=== PATIENT | male | born 1970 | race Caucasian/White ===

== ENCOUNTER 2017-10-02 19:04 | Emergency (ER) | payer OTHER ==
[~2017-10-02] VITALS: Ht 170.2 cm; Wt 61.2 kg
[2017-10-02 19:13] VITALS: Ht 170.2 cm; Wt 61.2 kg
[2017-10-02 19:57] LABS: BASOPHIL % 0.6 % (0-2); PLATELET COUNT 288 x10^3mcL (130-400); RED CELL DISTRIBUTION WIDTH 11.8 % (11.5-14.5)
[2017-10-02 20:08] LABS: CALCIUM 7.8 mg/dL (8.5-10.1); CARBON DIOXIDE 29.3 mmol/L (21-32); CHLORIDE SERUM 103 mmol/L (98-107); CREATININE SERUM 0.9 mg/dL (0.7-1.3); GFR1 > 60 mL/min; GLUCOSE SERUM 160 mg/dL (74-106); POTASSIUM SERUM 3.6 mmol/L (3.5-5.1); SODIUM SERUM 143 mmol/L (136-145)
[2017-10-02 20:11] LABS: ALBUMIN 3.5 g/dL (3.4-5.0); ALKALINE PHOSPHATASE 94 U/L (46-116); ALT/SGPT 49 U/L (16-63); AST/SGOT 90 U/L (15-37); BILIRUBIN TOTAL 2.89 mg/dL (0.20-1.00); TOTAL PROTEIN, SERUM 7.3 g/dL (6.4-8.2)
[2017-10-03 00:20] VITALS: BP 111/77
== END 2017-10-03 00:20 | disposition home or self-care (01) ==
LOC: ED 19:04
PROVIDERS: Emergency Medicine
DX: K29.20 Alcoholic gastritis without bleeding (principal); F10.10 Alcohol abuse, uncomplicated; K27.9 Peptic ulcer, site unspecified, unspecified as acute or chronic, without hemorrhage or perforation
CPT/HCPCS: 83880; G0480; J2270; J2405; J3411; J3490; Q0092

== ENCOUNTER 2018-11-19 14:12 | Inpatient (IN) | payer OTHER ==
[~2018-11-19] VITALS: Ht 175.3 cm; Wt 77.0 kg
--- NOTE | 2018-11-19 15:05 | NUR ---
NO ANSWER FROM LOBBY TO TRIAGE.
[2018-11-19 15:12] VITALS: Ht 175.3 cm; Wt 77.0 kg
--- NOTE | 2018-11-19 15:21 | NUR ---
PT RETURNED TO LOBBY WITH VISITOR, ARNOLDO NOTED.
--- NOTE | 2018-11-19 16:17 | NUR ---
PT PLACED IN T1 FOR EVAL.
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
--- NOTE | 2018-11-19 17:01 | NUR ---
AT BEDSIDE TO EXPLAIN PROCEDURE TO PT AND PT STEP DAUGHTER.
[2018-11-19 17:02] LABS: BASOPHIL % 0.5 % (0-2); PLATELET COUNT 336 x10^3mcL (130-400); RED CELL DISTRIBUTION WIDTH 13.6 % (11.5-14.5)
[2018-11-19 17:04] LABS: CALCIUM 8.8 mg/dL (8.5-10.1); CARBON DIOXIDE 24.7 mmol/L (21-32); CHLORIDE SERUM 100 mmol/L (98-107); CREATININE SERUM 0.9 mg/dL (0.7-1.3); GFR1 > 60 mL/min; GLUCOSE SERUM 113 mg/dL (74-106); SODIUM SERUM 138 mmol/L (136-145)
[2018-11-19 17:09] LABS: ALBUMIN 3.5 g/dL (3.4-5.0); ALKALINE PHOSPHATASE 75 U/L (46-116); ALT/SGPT 63 U/L (16-63); AST/SGOT 55 U/L (15-37); BILIRUBIN TOTAL 1.88 mg/dL (0.20-1.00); TOTAL PROTEIN, SERUM 7.4 g/dL (6.4-8.2)
[2018-11-19 17:15] LABS: UA SPECIFIC GRAVITY >=1.030 (1.005-1.035); microscopic required? YES; urine erythrocyte 1+ (NEGATIVE)
[2018-11-19 17:22] LABS: AMPHETAMINE QUAL UR NONE DETECTED (See below)
--- NOTE | 2018-11-19 18:55 | NUR ---
SUMMARY: AFTER DR JUÁREZ EXPLAINED CHEST TUBE PROCEDURE TO PATIENT WITH HIS STEP DAUGHTER COMMERCIAL ATTACHE, SET UP CONTINUED, V/S WERE NOTEDAND PLACED CAPNOGRAPHY FOR SEDATION. SEDATION STARTED WELL PRIOR TO THE PROCEDURE TO RELAX THE PATIENT. PRE EVAL SHOWED THE LEFT CHEST TO BE RAISED, "SWOLLEN" VS THE RIGHT SIDE. BREATH SOUNDS DECREASED. RESPIRATIONS SLIGHTLY SHALLOW AT A RATE OF 24-26. OBVIOUS PAIN WITH DEEP RESP. PROCEDURE COMPLETED WITH 2ND MD ASSISTING WITH CONSULT REQUESTED. AFTER CXR NOTED (18:45) PATIENT WAS REPOSITIONED IN LOW FOWLERS WITH LEFT CHEST TUBE TO 20 MM/ HG SUCTION. ATHOUGHT BLOOD HAS BEEN NOTED IT HAS YET TO CAUSE ACCUMULATION IN THE CANISTER FOR MEASUREMENT. PATIENT HAS BEEN RELAXING AFTER THE PROCEDURE AND NOW SLEEPING. LAST DOSE OF MEDICATION WAS PROVIDED 50 MINUTES AGO (NOW 19:07) MODERATE SEDATION IS CONSIDERED DONE. I WILL REPORT OFF TO PM SHIFT AND CARE TO CONTINUE PER ED MD ORDERS.
--- NOTE | 2018-11-19 20:05 | NUR ---
REPORT CALLED TO JOLIE FALK FOR ADMISSION
[2018-11-19 20:08] LABS: MAGNESIUM 2.3 mg/dL (1.8-2.4); PHOSPHOROUS 2.9 mg/dL (2.5-4.9)
[2018-11-19 20:11] LABS: CHOLESTEROL/HDL RATIO 1.8
[2018-11-19 20:41] VITALS: BP 138/81
--- NOTE | 2018-11-19 20:45 | NUR ---
RECEIVED PT FROM ED VIA SERGEI. ORIENTED PT TO ROOM AND SURROUNDINGS. IV NOTED TO LAC PATENT AND INTACT. TELE 19 PLACED ON PT READING NSR. INSTRUCTED PT ON THE USE OF CALL LIGHT FOR ASSISTANCE. ENDORSD PT TO PRIMARY NURSE JOLIE
--- NOTE | 2018-11-19 22:24 | NUR ---
RECIEVED PT FROM SURU RN IN NO ACUTE DISTRESS. TELE # 19, SR. CHEST TUBE IN PLACE TO L CHEST WALL, SET UP TO GRAVITY PER MD ORDERS. IV TO LAC, PATENT. ORIENTED TO ROOM. BED IN LOWEST POSITION, 2 SIDE RAILS UP, CALL LIGHT IN REACH. FAMILY MEMBER AT BEDSIDE. INSTRUCTED TO CALL FOR ASSISTANCE.
--- NOTE | 2018-11-20 00:36 | NUR ---
RESTING WITH EYES CLOSED. BREATHING E/U. NO ACUTE DISTRESS NOTED. WILL CONTINUE TO MONITOR.
[2018-11-20 05:58] VITALS: BP 122/67
--- NOTE | 2018-11-20 06:07 | NUR ---
CHEST TUBE REMAINS IN PLACE TO GRAVITY TO L CHEST WALL WITH 50 ML OUTPUT OVERNIGHT. DENIES SOB AT THIS TIME, ON NC @ 2L. NO ACUTE DISTRESS NOTED. WILL ENDORSE TO ONCOMING RN.
--- NOTE | 2018-11-20 07:26 | NUR ---
PATIENT IS IN BED, BED IS TO THE LOWEST POSITION. PATIENT IS A/O X4. PATIENT HAS CHEST TUBE NOTED TO L SIDE, WITH SMALL AMOUNT OF SANGUINEOUS FLUID DRAINING. PATIENT CLAIMS NO PAIN AT THIS TIME. ULTRASOUND IS BEING DONE AT BEDSIDE AT THIS TIME. IV ACCESS NOTED TO LAC. N/S INFUSING AT 100 ML/HR. AT BEDSIDE. CALL LIGHT WITHIN REACH, WILL CONTINUE TO MONITOR.
[2018-11-20 07:30] VITALS: BP 110/71
[2018-11-20 08:12] VITALS: BP 110/71
[2018-11-20 08:29] LABS: CARBON DIOXIDE 26.6 mmol/L (21-32); CHLORIDE SERUM 103 mmol/L (98-107); CREATININE SERUM 0.8 mg/dL (0.7-1.3); GFR1 > 60 mL/min; GLUCOSE SERUM 89 mg/dL (74-106); POTASSIUM SERUM 3.6 mmol/L (3.5-5.1); SODIUM SERUM 139 mmol/L (136-145)
[2018-11-20 08:31] LABS: BASOPHIL % 0.4 % (0-2); PLATELET COUNT 281 x10^3mcL (130-400)
--- NOTE | 2018-11-20 10:03 | NUR ---
[facility] RADIOLOGY CALLED AT THIS TIME AND REPORTED CRITICAL REPORT OF PATIENTS CXR REPORT SHOWING WORSENING. DR GALVAN PAGED AT THIS TIME.
[2018-11-20 11:44] VITALS: BP 119/76
--- NOTE | 2018-11-20 11:49 | NUR ---
DR. GALVAN CALLED AT THIS TIME AND WAS INFORMED OF PATIENTS CRITICAL FINDING. PER DR. GALVAN, HE IS AWARE AND WILL AWAIT FOLLOW UP XR. NO FURTHER ORDERS AT THIS TIME. WILL CONTINUE TO MONITOR.
--- NOTE | 2018-11-20 12:08 | NUR ---
CHEST TUBE PLACED AT THIS TIME WITH SUCTION. NO PROBLEMS NOTED. PATIENT STATES THAT THEY HAVE PAIN IN THEIR L SIDED ABDOMEN. WILL MEDICATE.
--- NOTE | 2018-11-20 12:19 | NUR ---
PATIENT MEDICATED AT THIS TIME, SEE EMAR. WILL CONTINUE TO MONITOR.
--- NOTE | 2018-11-20 13:18 | NUR ---
PATIENTS TELE MONITOR ASSESED AT THIS TIME, AND IN PLACE. TELE NUMBER: 18.
--- NOTE | 2018-11-20 17:42 | NUR ---
PATIENT IS IN BED RESTING COMFORTABLY AT THIS TIME. PATIENT STATES THAT THEY DO NOT HAVE ANY PAIN AT THIS TIME. PATIENT IS FREE FROM ANY SIGNS OF DISTRESS. HEELS ARE OFF LOADED WITH PILLOWS. CALL LIGHT IS WITHIN REACH. WILL CONTINUE TO MONITOR AND ENDORSE REPORT TO ONCOMING RN.
[2018-11-20 18:07] VITALS: BP 106/67
--- NOTE | 2018-11-20 19:20 | NUR ---
RECEIVED PT AOX4 ABLE TO RESPOND TO COMMANDS AND MAKE NEEDS KNOWN. PUPILS BRISK AND PERRLA, NO REPORTED MEREDITH, SPEECH CLEAR. GCS=15.TRACHEA MIDLINE, NO DRAINAGE TO EENT. NO EENT COMPLAINTS. LUNG SOUNDS CLEAR TO RIGHT SIDE, DIMINISHED TO LEFT SIDE. LEFT SUBCUTANEOUS EMPHYSEMA WITH CHEST TUBE/DRESSING CDI, DRAINING IN TUBE SANGUOUNOUS/BLOODY DRAINAGE, CONNECTED TO SUCTION, NO AIR LEAK. CHEST RISE/FALL SYMMETRIC, DENIES SOB, NO ACUTE RESP DISTRESS.S1/S2 SOUNDS, CHEST WALL STABLE, DENIES CHEST PAIN. PULSES MODERATE X4 EXTREMITIES, CAP REFILL <3 SEC. SKIN COLOR CONSISTENT WITH ETHNICITY, NO EDEMA. GEN WEAKNESS. ROM ACTIVE. NO CONTRACTURES/DEFORMITIES. NO JOINT SWELLING/TENDERNESS.NO S/S OF N/V. ACTIVE BOWEL SOUNDS X4 QUADRANTS, ABD SOFT/FLAT.PT ABLE TO VOID FREELY USING URINAL, MELE URINE NOTED. NO PENILE EDEMA OR DISCHARGE.SKIN INTACT. LAC IV NO S/S OF INFILTRATION, DRESSING CDI, PATENT. LEFT SIDE CHEST TUBE DRAINING TO GRAVITY, INTACT. HOB ELEVATED 30 DEGREES, CALL LIGHT WITHIN REACH, BED AT LOWEST SETTING. WILL CONT TO MONITOR. TEACHING PROVIDED TO FAMILY AND PATIENT.
--- NOTE | 2018-11-20 21:12 | NUR ---
PT REPORTING 7/10 PAIN TO LEFT SIDE CHEST TUBE SITE PAIN. WILL MEDICATE PER EMAR.
[2018-11-20 21:38] VITALS: BP 121/71
--- NOTE | 2018-11-20 22:20 | NUR ---
UPON ENTERING ROOM PT IN NO ACUTE DISTRESS, CHEST RISE/FALL SYMMETRIC, E/U BREATHING, EASILY ARUOSABLE TO STIMULI. PT DENIES ANY SOB OR PAIN AT THIS TIME.
--- NOTE | 2018-11-21 01:51 | NUR ---
UPON ENTERING ROOM PT SLEEPING BUT EASILY AROUSABLE TO STIMULI. IN NO ACUTE DISTRESS, CHEST RISE/FALL SYMMETRIC, E/U BREATHING. PT DENIES ANY SOB OR PAIN AT THIS TIME.
--- NOTE | 2018-11-21 05:33 | NUR ---
PT AWAKE/ALERT UPON ENTERING ROOM. NO ACUTE DISTRESS, CHEST RISE/FALL SYMMETRIC, E/U BREATHING. PT ON 3L NC INTACT. CHEST TUBE INTACT LEFT SIDE TO SUCTION DRAINING BLOODY/SANGUOUNOUS DRAINAGE, APPROX 150 ML THIS SHIFT OUT. NO AIR LEAK NOTED. BED AT LOWEST SETTING, CALL LIGHT WITHIN REACH, HOB ELEVATED 30 DEGREES.
--- NOTE | 2018-11-21 05:44 | NUR ---
XRAY TECHS AT BEDSIDE FOR CHEST XRAY
[2018-11-21 06:01] VITALS: BP 108/80
--- NOTE | 2018-11-21 06:59 | NUR ---
GAVE REPORT TO DILEEP [place]. UPDATES GIVEN, QUESTION ANSWERED.
--- NOTE | 2018-11-21 07:00 | NUR ---
RECEIVED BEDSIDE REPORT FROM DITCHER NURSE AT THIS TIME. PATIENT RESTING COMFORTABLY IN BED. NO APPARENT DISTRESS OR DISCOMFORT NOTED. 3L NC IN PLACE AND TOLERATING WELL. CHEST TUBE IN PLACE TO LEFT SIDE CONNECTED TO SUCTION. PATIENT DENIES CHEST PAIN/PRESSURE AT THIS TIME. IV PATENT AND INTACT. ALL QUESTIONS AND CONCERNS ADDRESSED. ALL NEEDS ATTENDED TO. SEIZURE PRECAUTIONS IN PLACE. WILL CONTINUE TO MONITOR
[2018-11-21 07:02] LABS: CALCIUM 8.3 mg/dL (8.5-10.1); CARBON DIOXIDE 30.1 mmol/L (21-32); CHLORIDE SERUM 103 mmol/L (98-107); CREATININE SERUM 0.8 mg/dL (0.7-1.3); GFR1 > 60 mL/min; GLUCOSE SERUM 83 mg/dL (74-106); POTASSIUM SERUM 3.3 mmol/L (3.5-5.1); SODIUM SERUM 140 mmol/L (136-145)
[2018-11-21 07:05] LABS: BASOPHIL % 0.7 % (0-2); PLATELET COUNT 336 x10^3mcL (130-400); RED CELL DISTRIBUTION WIDTH 12.7 % (11.5-14.5)
[2018-11-21 09:18] VITALS: BP 105/64
--- NOTE | 2018-11-21 09:30 | NUR ---
ALL MORNING MEDICATIONS ADMINISTERED. PATIENT TOLERATED WELL. NO ADVERSE EFFECTS NOTED. ALL NEEDS ATTENDED TO. WILL CONTINUE TO MONITOR
--- NOTE | 2018-11-21 10:14 | NUR ---
SPOKE TO DR BRADLEY REGARDING PATIENT POTASSIUM 3.[address] BRADLEY, TO JUST MONITOR THE POTASSIUM AND NO REPLACEMENT ORDER. ALL QUESTIONS AND CONCERNS ADDRESSED. ALL NEEDS ATTENDED TO. WILL CONTINUE TO MONITOR
--- NOTE | 2018-11-21 12:45 | NUR ---
PATIENT SITTING UP IN BED EATING LUNCH AT THIS TIME. PATIENT TOLERATING DIET WELL. NO APPARENT DISTRESS OR DISCOMFORT NOTED. ALL NEEDS ATTENDED TO. WILL CONTINUE TO MONITOR
[2018-11-21 13:15] VITALS: BP 108/76
--- NOTE | 2018-11-21 16:48 | NUR ---
SPOKE TO DR RAO AND REPORTED PATIENT CHEST X RAY RESULT WHICH SHOWED NO PNEUMOTHORAX. PER DR RAO, DO NOT CLAMP TODAY, REPEAT CHEST XRAY TOMORROW MORNING, IF RESULTS SHOW NO PNEUMOTHORAX, CLAMP CHEST TUBE, AND GET A REPEAT CHEST XRAY ONE HOUR LATER. TELEPHONE ORDER READ BACK, CONFIRMED, AND FOLLOWED THROUGH. ALL NEEDS ATTENDED TO. WILL CONTINUE TO MONITOR
[2018-11-21 17:00] VITALS: BP 111/80
--- NOTE | 2018-11-21 17:58 | NUR ---
3.3 POTASSIUM COVERED AT THIS TIME. PATIENT TOLERATED WELL. NO ADVERSE EFFECTS NOTED. ALL NEEDS ATTENDED TO. WILL CONTINUE TO MONITOR
--- NOTE | 2018-11-21 18:29 | NUR ---
PATIENT RESTING COMFORTABLY IN BED AT THIS TIME. NO APPARENT DISTRESS OR DISCOMFORT NOTED. IV PATENT AND INTACT. CHEST TUBE INTACT TO LEFT SIDE, NO SUCTION. 140ML OUT OF CHEST TUBE DURING SHIFT. ALL QUESTIONS AND CONCERNS ADDRESSED. ALL NEEDS ATTENDED TO. SAFETY PRECAUTIONS MAINTAINED. WILL ENDORSE ALL CARE TO OXYACETYLENE WELDER NURSE
--- NOTE | 2018-11-21 19:56 | NUR ---
SHIFT REASSESSMENT DONE.PATIENT ALERT AND ORIENTED.MAKE NEEDS KNOWN TO STAFF.SZ PRECAUTION,O2 AT 3 LITERS,CHEST TUBE L,CLAMPED FOR NOW.FAMILY AT BEDSIDE,SUPPORTIVE OF CARE.GEN WEAKNESS,FALL PRECAUTION.XRAY L RIB,MULTIPLE RIB FX 2ND AND 4TH RIB.HEPLOCK LAC.TELE 18,SR.SCD INTACT.CALL LIGHT IN REACH.
[2018-11-21 20:58] VITALS: BP 112/75
--- NOTE | 2018-11-21 21:56 | NUR ---
PM MEDS GIVEN,SWALLOWS WELL.FAMILY AT BEDSIDE,STAYING OVER.
--- NOTE | 2018-11-22 01:17 | NUR ---
PATIENT GIVEN NORCO FOR PAIN REQUESTED.
[2018-11-22 05:42] VITALS: BP 105/73
--- NOTE | 2018-11-22 06:04 | NUR ---
I AND O MEASURED.NO DISTRESS THIS SHIFT,AM MED GIVEN,SWALLOWS WELL.DOING HIS AM CARE. AT BEDSIDE,SUPPORTIVE OF CARE.CALL LIGHT IN REACH.WILL ENDORSE TO NEXT SHIFT.
[2018-11-22 07:25] LABS: BASOPHIL % 0.4 % (0-2); PLATELET COUNT 351 x10^3mcL (130-400); RED CELL DISTRIBUTION WIDTH 13.7 % (11.5-14.5)
--- NOTE | 2018-11-22 07:30 | NUR ---
AAO TIMES 4. TELE # 18 SR. LUNGS DIMINISHED BILATERALLY. O2 SAT ON 3L NC 99%. CHEST TUBE TO LEFT AXILLA AREA DRESSING CDI, CHEST TUBE TO GRAVITY DRAINAGE, NO CLAMPS PRESENT. NO SOB. BS'S ACTIVE TIMES 4. PERIPHERAL PULSES PALPABLE. NO EDEMA. NO C/O PAIN.
--- NOTE | 2018-11-22 07:38 | NUR ---
AAO TIMES 4. TELE # 18 SR. LUNGS CTA. NO SOB. O2 SAT ON RA 99%. BS'S ACTIVE TIMES 4. WEBSTER. CHEST TUBE TO LEFT SIDE OF CHEST CLAMPED, AND DRESSING IS CDI. AT BEDSIDE, SUPPORTIVE. PERIPHERAL PULSES PALPABLE. NO EDEMA.
[2018-11-22 07:51] LABS: CALCIUM 8.8 mg/dL (8.5-10.1); CARBON DIOXIDE 25.2 mmol/L (21-32); CHLORIDE SERUM 103 mmol/L (98-107); CREATININE SERUM 0.8 mg/dL (0.7-1.3); GFR1 > 60 mL/min; GLUCOSE SERUM 87 mg/dL (74-106); MAGNESIUM 2.1 mg/dL (1.8-2.4); PHOSPHOROUS 3.1 mg/dL (2.5-4.9); POTASSIUM SERUM 3.6 mmol/L (3.5-5.1); SODIUM SERUM 139 mmol/L (136-145)
--- NOTE | 2018-11-22 08:12 | NUR ---
PATIENTS LEFT SIDE CHEST TUBE IS TO DRAINAGE, NO CLAMPS PRESENT. THE CXR SHOWED TINY LEFT PNEUMOTHORAX, I NOTIFED DR RAO, SHE SAID TO LEAVE THE CHEST TUBE TO GRAVITY AND TO ORDER A CXR AT 1600 TODAY, I ORDERED IT.
--- NOTE | 2018-11-22 09:15 | NUR ---
AT 0915 DR RAO CAME TO SEE THE PATIENT. THE DRESSING WAS LOOSE, SO I CHANGED IT SHE ORDERED. ALSO I TURNED THE SUCTION ON TO THE CHEST TUBE WATER DRAINAGE SYSTEM TO -30 MMHG TO A GENTLE BUBBLING. THE DRESSING WAS REMOVED AND A NEW SPLIT GAUZE WAS APPLIED WITH SURGICAL STRETCH TAPE WAS ON BEFORE.
[2018-11-22 09:23] VITALS: BP 109/74
[2018-11-22 13:41] VITALS: BP 111/77
[2018-11-22 17:09] VITALS: BP 107/73
--- NOTE | 2018-11-22 19:46 | NUR ---
SHIFT REASSESSMENT DONE.PATIENT ALERT AND ORIENTED.RESTING.O2 AT 3 LITERS N/C.HAS CHEST TUBE TO WATER SUCTION 30 MMHG.CXR TINY L PNEUMOTHORAX.HEPLOCK LAC.TELE 18 SR.HAS LIBRIUM Q 8 HOURS PO.ETOH WITHDRAWAL.CALL LIGHT IN REACH.
--- NOTE | 2018-11-22 21:34 | NUR ---
PATIENT PM MED GIVEN,SWALLOWS WELL. AT BEDSIDE.ALSO HAD HS CARE, ASSISTED HIM.
[2018-11-22 22:06] VITALS: BP 105/68
--- NOTE | 2018-11-22 22:07 | NUR ---
DR BRANDT MADE AWARE OF CXR RESULT AND AWARE OF CHEST TUBE ON SUCTION.
--- NOTE | 2018-11-22 22:51 | NUR ---
WILL DC SUCTION AT 2300 PER ORDER.
--- NOTE | 2018-11-22 23:00 | NUR ---
DC'D WATERSEAL SUCTION AT THIS TIME.
--- NOTE | 2018-11-23 03:20 | NUR ---
CHECKED AT INTERVALS,FOR NEED AND SAFETY. AT BEDSIDE.
[2018-11-23 05:30] VITALS: BP 103/73
--- NOTE | 2018-11-23 05:42 | NUR ---
PATIENT GIVEN NORCO AT 0507,ALSO LIBRIUM ETOH PROTOCOL. AT BEDSIDE,SUPPORTIVE OF CARE.CHEST TUBE INTACT,TO GRAVITY.NO RESP DISTRESS ALL SHIFT.IN GOOD SPIRIT.WILL ENDORSE TO NEXT SHIFT.
[2018-11-23 06:29] LABS: BASOPHIL % 0.5 % (0-2); PLATELET COUNT 361 x10^3mcL (130-400)
[2018-11-23 06:41] LABS: CARBON DIOXIDE 27.7 mmol/L (21-32); CHLORIDE SERUM 101 mmol/L (98-107); GFR1 > 60 mL/min; GLUCOSE SERUM 100 mg/dL (74-106); MAGNESIUM 2.2 mg/dL (1.8-2.4); POTASSIUM SERUM 3.6 mmol/L (3.5-5.1); SODIUM SERUM 139 mmol/L (136-145)
--- NOTE | 2018-11-23 07:43 | NUR ---
RECEIVED AWAKE, ALERT AND ORIENTED. SITTING ON A CHAIR, AT BEDSIDE. NO ACUTE RESP. DISTRESS NOTED. CHEST TUBE TO LT SIDE IN PLACE, DRAINING TO GRAVITY.SITE WITH DRESSING INTACT. VS WNL. NO C/O PAIN OR DISCOMFORT. CALL LIGHT WITHIN REACH. WILL CONTINUE WITH PLAN OF CARE.
[2018-11-23 08:00] VITALS: BP 116/81
--- NOTE | 2018-11-23 08:09 | NUR ---
PT GOT UP TO GO TO THE BATHROOM AND PER THE CHEST TUBE ACCIDENTALLY GOT PULLED OUT. PT FOUND IN BATHROOM IN NO DISTRESS. INSTRUCTED TO GO BACK TO BED. VASELINE GAUZE AND PRESSURE DRESSING APPLIED. PT DENIES PAIN OR DISCOMFORT. VS STABLE. O2 SATS 99-100% ON 2L N/C. DENIES SOB AT THIS TIME. RESIDENT ONCALL PAGED AND MADE AWARE BY CHARGE NURSE. FAMILY AT BEDSIDE. WILL CONTINUE TO MONITOR.
[2018-11-23 08:11] VITALS: BP 100/71
--- NOTE | 2018-11-23 08:20 | NUR ---
PT LEFT FOR CXR IN NO ACUTE DISTRESS. ON O2 2L N/C SATS 98%
--- NOTE | 2018-11-23 09:55 | NUR ---
RESTING IN BED, NO DISTRESS NOTED. NO SOB.
[2018-11-23 11:44] VITALS: BP 101/66
[2018-11-23 13:35] VITALS: BP 101/66
--- NOTE | 2018-11-23 16:15 | NUR ---
PT DC'D HOME IN NO DISTRESS, AWAKE ALERT AND ORIENTED. VS STABLE. NO C/O PAIN OR DISCOMFORT AT THE TIME OF DC. SKIN WHERE CHEST TUBE WAS WITH DRESSING INTACT. DC INSTRUCTIONS REVIEWED WITH PT AND FAMILY. THEY VERBALIZED UNDERSTANDING. NO RX GIVEN. HL REMOVED AND SITE CLEAR. PERSONAL BELONGINGS TAKEN HOME.
== END 2018-11-23 16:13 | disposition home or self-care (01) | DRG 199 ==
LOC: ED 14:12 → DU 19:31
PROVIDERS: Emergency Medicine; General Practice; ADMIT Internal Medicine
PROC: 0W9B30Z Drainage of Left Pleural Cavity with Drainage Device, Percutaneous Approach (ICD-10-PCS; principal; 2018-11-19)
DX: S27.2XXA Traumatic hemopneumothorax, initial encounter (principal); N17.0 Acute kidney failure with tubular necrosis; S22.42XA Multiple fractures of ribs, left side, initial encounter for closed fracture; M62.82 Rhabdomyolysis; E78.00 Pure hypercholesterolemia, unspecified; F10.129 Alcohol abuse with intoxication, unspecified; T79.7XXA Traumatic subcutaneous emphysema, initial encounter; Y90.0 Blood alcohol level of less than 20 mg/100 ml; F32.9 Major depressive disorder, single episode, unspecified; V19.88XA Pedal cyclist (driver) (passenger) injured in other specified transport accidents, initial encounter; Y93.89 Activity, other specified; Y92.89 Other specified places as the place of occurrence of the external cause; Y99.8 Other external cause status; Z80.59 Family history of malignant neoplasm of other urinary tract organ
CPT/HCPCS: 94150; C1729; G0378; G0480; J2001; J2250; J2270; J3010; J7030; Q0092